=== PATIENT | male | born 1985 | race Caucasian/White ===

== ENCOUNTER 2016-10-10 20:38 | Emergency (ER) | payer OTHER ==
[2016-10-10 20:47] VITALS: RESP 16; TEMP 99
--- NOTE | 2016-10-10 21:13 | EDPHY ---
H & P Stated Complaint: c/o n/v/d related to allergy to green peppers since last pm Time Seen by Provider: 10/10/16 21:12 HPI/ROS: CHIEF COMPLAINT: nausea, vomiting, diarrhea HISTORY OF PRESENT ILLNESS: 30-year-old male presents emergency department with nausea, vomiting and diarrhea that started 17 hours prior to arrival. 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 Patient woke up in the middle the night vomiting, few hours later started with diarrhea. Patient has been able to keep any fluids down. He reports at least 10 episodes of liquid diarrhea. He denies blood in his vomit or stool. Patient reports this has happened handful of times before. He denies any other allergies, no shortness of breath, chest tightness, tongue swelling, difficulty breathing or other symptoms. He denies abdominal cramping, reports his stomach feels empty and hungry. Patient is requesting IV fluids. REVIEW OF SYSTEMS: A comprehensive 10 point review of systems is otherwise negative aside from elements mentioned in the history of present illness. Source: Patient Exam Limitations: No limitations - Medical/Surgical History Hx Asthma: No Hx Chronic Respiratory Disease: No Hx Diabetes: No Hx Cardiac Disease: No Hx Renal Disease: No Hx Cirrhosis: No Hx Alcoholism: No Hx HIV/AIDS: No Hx Splenectomy or Spleen Trauma: No Other PMH: tonsilectomy/adenoidectomy, rhinoplasty - Social History Smoking Status: Never smoked - Physical Exam Exam: Physical Exam Gen: Alert and Oriented, NAD HEENT: PERRL, moist mucous membranes NECK: no meningismus CV: Tachycardic rate and regular rhythm PULM: CTAB, no wheezes ABDOMEN: soft, non tender to palpation, BS present BACK: No CVA tenderness NEURO: Neurologically grossly intact EXTREMITIES: normal appearing SKIN: no rash or break in skin on exposed skin PSYCH: answers questions appropriately. Constitutional: Initial Vital Signs Temperature (C) 37.2 C 10/10/16 20:42 Heart Rate 110 H 10/10/16 20:42 Respiratory Rate 16 10/10/16 20:42 Blood Pressure 140/87 H 10/10/16 20:42 O2 Sat (%) 97 10/10/16 20:42 O2 Delivery Mode Room Air Allergies/Adverse Reactions: green pepper Allergy (Verified 10/10/16 20:47) Home Medications: Medication Instructions Recorded Ondansetron Odt [Zofran Odt] 4 mg PO Q6-8PRN PRN #10 tab 10/10/16 Zyrtec 10/10/16 Medical Decision Making ED Course/Re-evaluation: Patient is nontoxic appearing, no peritoneal signs on exam, IV established, patient is given 2 L of normal saline IV, 4 mg of Zofran has been ordered. Will be discharged home with prescription for Zofran. Patient is comfortable with this plan, he is given strict return precautions for worsening symptoms, fevers, new symptoms or concerns. Differential Diagnosis: The differential diagnosis for the patient's nausea and vomiting included but was not limited to gastroenteritis, gastritis, appendicitis, and medication side effect. Departure - Departure Clinical Impression: Gastritis, allergic reaction, Nausea vomiting and diarrhea Condition: Good Instructions: Acute Nausea and Vomiting (ED), Food Allergy (ED), Ondansetron ( By mouth) Additional Instructions: Drink small sips of fluids every 10 minutes, take Zofran as needed for nausea 1 pill every 6-8 hours. Clear liquids only for the next 24 hours then advance her diet slowly as tolerated, return to the emergency department for worsening symptoms, new symptoms or concerns. Referrals: Carol Cooper MD [Medical Doctor] - As per Instructions (Primary care provider on-call) Prescriptions: Ondansetron Odt [Zofran Odt] 4 mg PO Q6-8PRN PRN #10 tab PRN Reason: Nausea/Vomiting, Can'T Take Po
[2016-10-10] MEDS ORDERED: ONDANSETRON 4 MG/2 ML VIAL IVP ONE (21:28)
[2016-10-10] MEDS ORDERED: NS 2,000 ML IV ONE (21:28)
[2016-10-10] MEDS ORDERED: ONDANSETRON 4MG PREPACK#2 BTL TAKEHOME ONE (21:38)
[2016-10-10 22:45] VITALS: BP 137/83; PULSE 107; O2SAT 98
== END 2016-10-10 22:44 | disposition home or self-care (01) ==
DX: K29.60 Other gastritis without bleeding (principal)
CPT/HCPCS: 96374; J2405